=== PATIENT | male | born 1945 | race Caucasian/White ===

== ENCOUNTER 2020-03-06 16:00 | Inpatient (IN) | payer OTHER ==
[~2020-03-06] VITALS: Ht 175.3 cm; Wt 68.5 kg
[2020-03-06 16:42] LABS: BASOPHIL % 0.3 % (0-2); PLATELET COUNT 184 x10^3mcL (130-400)
[2020-03-06 16:49] LABS: RED CELL DISTRIBUTION WIDTH 17.2 % (11.5-14.5)
[2020-03-06 16:57] LABS: CALCIUM 8.6 mg/dL (8.5-10.1); CARBON DIOXIDE 22.8 mmol/L (21-32); CHLORIDE SERUM 103 mmol/L (98-107); CREATININE SERUM 1.3 mg/dL (0.7-1.3); GLUCOSE SERUM 155 mg/dL (74-106); POTASSIUM SERUM 3.4 mmol/L (3.5-5.1); SODIUM SERUM 138 mmol/L (136-145)
[2020-03-06 17:02] LABS: ALKALINE PHOSPHATASE 230 U/L (46-116); ALT/SGPT 73 U/L (16-63); AST/SGOT 46 U/L (15-37); BILIRUBIN TOTAL 2.1 mg/dL (0.20-1.00); CHOLESTEROL 179 mg/dL (<200); TOTAL PROTEIN, SERUM 7.1 g/dL (6.4-8.2)
[2020-03-06 18:12] LABS: AMPHETAMINE QUAL UR NONE DETECTED (See below)
[2020-03-06 19:13] LABS: CHOLESTEROL/HDL RATIO 2.5
[2020-03-06 19:58] LABS: microscopic required? NO
[2020-03-06 20:06] LABS: UA SPECIFIC GRAVITY 1.015 (1.005-1.035); urine erythrocyte NEGATIVE (NEGATIVE)
[2020-03-06 23:44] VITALS: BP 138/65
[2020-03-06 23:50] VITALS: Ht 175.3 cm; Wt 68.5 kg
[2020-03-07 05:44] VITALS: BP 126/71
[2020-03-07 08:00] LABS: ALKALINE PHOSPHATASE 185 U/L (46-116); ALT/SGPT 58 U/L (16-63); AST/SGOT 39 U/L (15-37); BILIRUBIN TOTAL 1.86 mg/dL (0.20-1.00); CALCIUM 8.3 mg/dL (8.5-10.1); CARBON DIOXIDE 20.5 mmol/L (21-32); CHLORIDE SERUM 107 mmol/L (98-107); CREATININE SERUM 1.1 mg/dL (0.7-1.3); GLUCOSE SERUM 102 mg/dL (74-106); MAGNESIUM 1.3 mg/dL (1.8-2.4); PHOSPHOROUS 3.9 mg/dL (2.5-4.9); SODIUM SERUM 140 mmol/L (136-145)
[2020-03-07 08:01] LABS: ALBUMIN 2.5 g/dL (3.4-5.0)
[2020-03-07 08:32] LABS: BASOPHIL % 0.6 % (0-2); PLATELET COUNT 138 x10^3mcL (130-400)
[2020-03-07 08:33] VITALS: BP 129/70
[2020-03-07 12:22] VITALS: BP 141/75
[2020-03-07 15:34] VITALS: BP 106/67
[2020-03-07 15:35] VITALS: BP 106/67
[2020-03-07 16:09] VITALS: BP 122/63
== END 2020-03-07 16:39 | disposition home or self-care (01) | DRG 442 ==
LOC: ED 16:00 → DU 18:06
PROVIDERS: Emergency Medicine; ADMIT Family Medicine; ATTEND Family Medicine
DX: K72.00 Acute and subacute hepatic failure without coma (principal); E44.1 Mild protein-calorie malnutrition; I10 Essential (primary) hypertension; E11.9 Type 2 diabetes mellitus without complications; D64.9 Anemia, unspecified; E87.6 Hypokalemia; Z68.27 Body mass index [BMI] 27.0-27.9, adult; Z79.899 Other long term (current) drug therapy
CPT/HCPCS: 82962; G0378; G0480; J2405; J3411; J3490; Q0092

== ENCOUNTER 2020-05-15 08:28 | Inpatient (IN) | payer OTHER ==
[~2020-05-15] VITALS: Ht 175.3 cm; Wt 64.9 kg
[2020-05-15 08:33] VITALS: Ht 175.3 cm; Wt 64.9 kg
--- NOTE | 2020-05-15 08:40 | NUR ---
PT BIB [facility] FROM HOME AFTER CALLED 911 FOR "DECREASED APPETITE AND ALOC" PER MEDIC X2 DAYS. PT DENIES ANY PAIN, OR SYMPTOMS AT THIS TIME. MEDICS STATES HX CHRONIC LIVER DISEASE WITH "OCCASINOAL ELEVATED AMMONIA LEVELS WHICH CAUSE HIM TO HAVE ALOC". DURING MSE BY MD, PT TOLD MD "I DIDNT EAT YESTERDAY BECAUSE I DIDNT FEEL LIKE IT". PT AAOX3, PT ORIENTED TO SELF, DATE AND PRESIDENT. UNABLE TO RECALL YEAR AND LOCATION. PT GOWNED AND PLACED ON FULL CM. NSR NOTED AT THIS TIME. MSE COMPLETED BY DR CHATMAN. KY LAM AT BEDSIDE FOR EKG.
--- NOTE | 2020-05-15 08:46 | NUR ---
EXT JS DEVELOPER AT THE BEDSIDE
[2020-05-15 09:16] LABS: CALCIUM 9.5 mg/dL (8.5-10.1); CARBON DIOXIDE 22.4 mmol/L (21-32); CHLORIDE SERUM 107 mmol/L (98-107); CREATININE SERUM 1.2 mg/dL (0.7-1.3); GLUCOSE SERUM 108 mg/dL (74-106); POTASSIUM SERUM 3.9 mmol/L (3.5-5.1); SODIUM SERUM 141 mmol/L (136-145)
[2020-05-15 09:22] LABS: ALKALINE PHOSPHATASE 183 U/L (46-116); ALT/SGPT 72 U/L (16-63); AST/SGOT 50 U/L (15-37); CHOLESTEROL 139 mg/dL (<200); TOTAL PROTEIN, SERUM 7.3 g/dL (6.4-8.2)
[2020-05-15 09:24] LABS: ALBUMIN 3.2 g/dL (3.4-5.0); HDL CHOLESTEROL 74 mg/dL (40-60)
[2020-05-15 09:28] LABS: microscopic required? NO
[2020-05-15 09:38] LABS: BASOPHIL % 0.3 % (0-2); PLATELET COUNT 172 x10^3mcL (130-400)
--- NOTE | 2020-05-15 10:17 | NUR ---
PT NOTED GETTING OUT OF BED AND STATED "IM READY TO GO HOME". REORIENTED PT AND HELPED BACK TO BED. EDUCATED AND GAVE PT CALL LIGHT. SIDE RAILS X2 UP FOR SAFETY. PT ON FULL CM. NO DISTRESS NOTED. WILL CONTINUE TO MONITOR.
[2020-05-15 10:48] LABS: urine erythrocyte NEGATIVE (NEGATIVE)
--- NOTE | 2020-05-15 11:06 | NUR ---
PT LAYING IN POSITION OF COMFORT IN ER [facility]. NO DISTRESS NOTED. RESP E/U. WILL CONTINUE TO MONITOR.
--- NOTE | 2020-05-15 12:24 | NUR ---
PT AWITING TO BE ADMITTED. PT AWARE. PT REMAINS UNCHANGED FROM INITIAL ASSESSMENT, NO DISTRESS NOTED, RESP E/U. PT DENIES ANY PAIN. IV FLUIDS INFUSING NO INFILTRATION OR PAIN NOTED TO IV SITE. WILL CONT TO MONITOR.
--- NOTE | 2020-05-15 13:21 | NUR ---
REPORT GIVEN TO MARY CHAMBERS WHO ASSUME FURTHER OF THIS PT.
[2020-05-15 13:51] VITALS: BP 138/71
--- NOTE | 2020-05-15 14:13 | NUR ---
RECEIVED PATIENT FROM ER, ALERT AND ORIENTED X3, ABLE TO WALK VERY STEADY GAIT. DENIED PAIN. SITUATED IN BED ORIENTED TO CALL LIGHT AND WITHIN REACH. CARE ENDORSE TO MARY CHAMBERS.
[2020-05-15 16:22] VITALS: BP 148/83
--- NOTE | 2020-05-15 18:18 | NUR ---
PATIENT IN BED AT THIS TIME, COMPLIANT WITH MEDICATIONS AND PO LACTULOSE. WILL CONTINUE TO MONITOR, DENIES DISCOMFORT OR PAIN. WILL ENDORSE TO ONCOMING NURSE.
--- NOTE | 2020-05-15 19:19 | NUR ---
PT RECIEVED COMINGOUT FROM THE BATHROOM,GAIT STABLE,ABDO IS SOFT WITH ACTIVE BOWEL SOUNDS,PT ON TELE MONITOR AND IN NSR NO ECTOPY OR CHEST PAIN AT THIS TIME,KEPT CLEAN AND DRY TO TOUCH,BED IN THE LOW POSITION AND LOCKED,KEPT CLEAN AND DRY TO [facility] AND WILL CONTINUE TO MONITOR.
[2020-05-15 20:45] VITALS: BP 141/78
--- NOTE | 2020-05-15 23:18 | NUR ---
PT SLEEPING SOUNDLY AND WILL CONTINUE TO MONITOR.
[2020-05-16 06:09] VITALS: BP 134/74
--- NOTE | 2020-05-16 06:21 | NUR ---
PT HAD A RESTING NIGHT NO CHANGE AT THIS TIME,WILL CONTINUE TO MONITOR.
[2020-05-16 07:01] LABS: BASOPHIL % 0.6 % (0-2); PLATELET COUNT 168 x10^3mcL (130-400)
[2020-05-16 07:07] LABS: RED CELL DISTRIBUTION WIDTH 14.9 % (11.5-14.5)
--- NOTE | 2020-05-16 07:10 | NUR ---
RECEIVED PATIENT FROM REYES COTTER. PATIENT IN BED SLEEPING AT THIS TIME. WILL SPEAK WITH PATIENT ABOUT PLAN OF CARE ONCE BREAKFAST HAS ARRIVED, INCLUDING PO MEDICATIONS AND IV ANTIBIOTICS.
[2020-05-16 07:18] LABS: CALCIUM 9.5 mg/dL (8.5-10.1); CARBON DIOXIDE 22.3 mmol/L (21-32); CHLORIDE SERUM 107 mmol/L (98-107); CREATININE SERUM 1.4 mg/dL (0.7-1.3); GLUCOSE SERUM 115 mg/dL (74-106); POTASSIUM SERUM 3.6 mmol/L (3.5-5.1); SODIUM SERUM 143 mmol/L (136-145)
[2020-05-16 08:26] VITALS: BP 127/67
--- NOTE | 2020-05-16 09:43 | NUR ---
PATIENT NOW AWAKE. DENIES DISCOMFORT OR PAIN. SPOKE WITH PATIENT ABOUT PLAN TODAY INCLUDING MEDICATIONS AND PATIENT AGREES. PATIENT COMPLIANT WITH AM MEDICATIONS. DR LEONG HAS ARRIVED TO NURSES STATION, WILL SPEAK WITH DR LEONG ONCE SHE EVALS PATIENT.
[2020-05-16 11:29] VITALS: BP 118/73
[2020-05-16 11:31] VITALS: BP 118/73
[2020-05-16 17:44] VITALS: BP 122/70
--- NOTE | 2020-05-16 18:33 | NUR ---
PATIENT IN BED AT THIS TIME. NO COMPLAINTS, ABLE TO EAT DINNER TRAY. STATES HE HAS BEEN ABLE TO HAVE "SEVERAL" BOWEL MOVEMENTS. WILL ENDORSE TO ONCOMING NURSE.
[2020-05-16 19:15] VITALS: BP 124/74
--- NOTE | 2020-05-16 19:15 | NUR ---
RECEIVED PT AWAKE ALERT AND VERBALLY RESPONSIVE.JUST GOT OUT FROM BR + BM.ON LACTULOSE TX FOR HEPATIC ENCEPHALOPATHY.DENIES CHESTPAIN.BP 124/74 MMHG,HR 105.WILL CONTINUE TO MONITOR.
--- NOTE | 2020-05-17 04:36 | NUR ---
PT SLEPT WELL ALL NIGHT.ON LACTULOSE TX AND +BM.DENIES ANY PAIN ALL NIGHT.ALL NEEDS MET.WILL CONTINUE TO MONITOR.
[2020-05-17 06:10] VITALS: BP 103/67
--- NOTE | 2020-05-17 07:19 | NUR ---
RECEIVED PATIENT FROM REYES SHAH. PATIENT IN BED SLEEPING AT THIS TIME. NO S/S OF PAIN OR DISCOMFORT. WILL SPEAK WITH PATIENT ABOUT PLAN OF CARE TODAY ONCE AWAKE, WILL WAIT FOR DR LEONG TO ARRIVE, WELL TO SEE CURRENT AMMONIA LEVELS LEVELS ARE PENDING AT THIS TIME. WILL CONTINUE TO MONITOR.
[2020-05-17 07:23] LABS: BASOPHIL % 0.4 % (0-2); PLATELET COUNT 162 x10^3mcL (130-400)
[2020-05-17 07:32] LABS: ALKALINE PHOSPHATASE 190 U/L (46-116); ALT/SGPT 79 U/L (16-63); AST/SGOT 82 U/L (15-37); BILIRUBIN TOTAL 1.65 mg/dL (0.20-1.00); CALCIUM 8.9 mg/dL (8.5-10.1); CARBON DIOXIDE 21.3 mmol/L (21-32); CHLORIDE SERUM 109 mmol/L (98-107); CREATININE SERUM 1.5 mg/dL (0.7-1.3); GLUCOSE SERUM 126 mg/dL (74-106); POTASSIUM SERUM 3.6 mmol/L (3.5-5.1); SODIUM SERUM 143 mmol/L (136-145); TOTAL PROTEIN, SERUM 7.1 g/dL (6.4-8.2)
--- NOTE | 2020-05-17 07:40 | NUR ---
PATIENT NOW AWAKE AND ALERT. SEATED AT BEDSIDE AT THIS TIME, EATING BREAKFAST TRAY. STATES THAT HE HAD BOWEL MOVEMENTS X5 AND URINATION X7. SPOKE WITH PATIENT ABOUT PLAN OF CARE TODAY INCLUDING MEDICATIONS AND PATIENT AGREES. CALL LIGHT IN REACH.
[2020-05-17 07:50] VITALS: BP 124/77
[2020-05-17 08:17] LABS: RED CELL DISTRIBUTION WIDTH 14.7 % (11.5-14.5)
[2020-05-17 10:19] VITALS: BP 124/77
[2020-05-17] MEDS ORDERED: XIFAXAN550 M1 PO (10:21)
[2020-05-17] MEDS ORDERED: REM15 PO (10:21)
[2020-05-17] MEDS ORDERED: LAC30L PO (10:22)
--- NOTE | 2020-05-17 11:21 | NUR ---
DR LEONG IN TO SEE PATIENT, STATES PATIENT CONDITION HAS IMPROVED AND WILL DISCHARGE TODAY. DISCHARGE COMPILED WITH PRESCRIPTION. DISCHARGE PACKET GIVEN AND EXPLAINED TO PATIENT. PATIENT AWARE TO [employer] WORKER NEW PRESCRIPTIONS AND HAS ALREADY SCHEDULED FOLLOW UP APPOINTMENT WITH PCP "ON MONDAY". NO FURTHER QUESTIONS AT THIS TIME. TELEMETRY REMOVED AND RETURN TO [facility], IV CATHETER REMOVED AND INTACT. SIGNATURES OBTAINED. PATIENT CALLED, ONCE ARRIVES, WILL CHANGE PATIENT TO REGULAR CLOTHES AND WILL ESCORT PATIENT DOWNSTAIRS.
--- NOTE | 2020-05-17 11:57 | NUR ---
PATIENT ARRIVED TO DROP OFF CLOTHES. PATIENT CHANGED. ESCORTED WITH BELONGINGS AND DISCHARGE PACKET VIA WHEELCHAIR.
== END 2020-05-17 11:51 | disposition home or self-care (01) | DRG 443 ==
LOC: ED 08:28 → DU 11:00 → ED 11:00 → MU 12:29 → DU 12:29 → MU 14:33 → DU 14:34
PROVIDERS: Emergency Medicine; ADMIT Internal Medicine; ATTEND Internal Medicine
DX: K72.90 Hepatic failure, unspecified without coma (principal); Z20.828 Contact with and (suspected) exposure to other viral communicable diseases; I10 Essential (primary) hypertension; E11.9 Type 2 diabetes mellitus without complications; E83.42 Hypomagnesemia; K70.30 Alcoholic cirrhosis of liver without ascites; Z91.19 Patient's noncompliance with other medical treatment and regimen
CPT/HCPCS: 82962; 83880; 97116-GP; G0378; J0696; J1644; J3475; J7030; J7040; Q0092; U0003-CS